=== PATIENT | female | born 1935 | race Caucasian/White ===

== ENCOUNTER 2019-12-29 09:37 | Outpatient (CLI) | payer MEDICARE, BC, SELFPAY ==
--- NOTE | 2019-12-29 09:43 | USCV_ITS ---
Isaac Angie Age: 84 Gender: F : 1935 Exam Date: 12/29/2019 10:08 Ordering Phys: Mario Inman MD Technologist: Scottie Cohen Exam Location: [facility] [place] Indication: MODERATE BP: 124 / 72 HR: 69 Rhythm: Sinus Technical Quality: Adequate MEASUREMENTS (Male / Female) Normal Values 2D ECHO LV Diastolic Diameter PLAX 3.2 cm 4.2 - 5.9 / 3.9 - 5.3 cm LV Systolic Diameter PLAX 2.0 cm IVS Diastolic Thickness 1.4 cm 0.6 - 1.0 / 0.6 - 0.9 cm IVS Systolic Thickness 1.7 cm LVPW Diastolic Thickness 0.9 cm 0.6 - 1.0 / 0.6 - 0.9 cm LVPW Systolic Thickness 1.3 cm LVOT Diameter 2.0 cm LV Ejection Fraction 2D Teich 66.3 % LV Ejection Fraction MOD 2C 72.4 % LV Ejection Fraction 2C AL 72.8 % LA Diameter 3.3 cm LA Width 3.8 cm LA Height 3.9 cm RA Width 3.3 cm RA Height 4.1 cm Aorta at Sinotubular Diameter 3.0 cm M-MODE LV Diastolic Diameter MM 4.0 cm 4.2 - 5.9 / 3.9 - 5.3 cm LV Systolic Diameter MM 2.1 cm LV Ejection Fraction MM Teich 79.9 % IVS Diastolic Thickness MM 0.8 cm 0.6 - 1.0 / 0.6 - 0.9 cm IVS Systolic Thickness MM 1.4 cm LVPW Diastolic Thickness MM 0.9 cm 0.6 - 1.0 / 0.6 - 0.9 cm LVPW Systolic Thickness MM 1.6 cm RV Diastolic Diameter MM 1.4 cm Aortic Annulus Diameter 2.6 cm LA Ao Ratio MM 1.2 MV E Point Septal Separation 0.6 cm DOPPLER AV Peak Velocity 377.0 cm/s LVOT Peak Velocity 134.0 cm/s AV Area Cont Eq vti 1.4 cm squared AV Area Cont Eq pk 1.1 cm squared MV Area PHT 2.7 cm squared Mitral E to A Ratio 0.7 MV E' Velocity 4.0 cm/s Mitral E to MV E' Ratio 26.2 Mitral E to LV E' Lateral Ratio 29.2 Mitral E to LV E' Septal Ratio 23.8 TR Peak Velocity 292.0 cm/s TR Peak Gradient 34.1 mmHg TV Peak E Velocity 77.0 cm/s Right Atrial Pressure 3.0 mmHg Pulmonary Artery Systolic Pressu 37.1 mmHg FINDINGS Left Ventricle Normal left ventricular cavity size. Moderate left ventricular hypertrophy. No regional wall motion abnormalities. Left ventricular ejection fraction is estimated at 66%. Grade I/IV diastolic dysfunction (abnormal relaxation filling pattern), normal to mildly elevated filling pressures. Right Ventricle The right ventricle is normal in size and function. Right Atrium The right atrium is normal in size. Left Atrium Moderately increased left atrial size. Mitral Valve Moderately thickened mitral valve. Severe mitral annular calcification. No mitral valve stenosis. Trace mitral valve regurgitation. Aortic Valve Severe aortic valve calcification. Moderate aortic valve stenosis, mean gradient 24.1 mmHg, JULISA 1.4 cm squared. Trace aortic valve regurgitation. Tricuspid Valve Mild tricuspid valve regurgitation. Pulmonic Valve Trace pulmonary valve regurgitation. Pericardium Normal pericardium without effusion. Aorta Normal ascending aorta dimension. CONCLUSIONS 1-Normal left ventricular cavity size. Moderate left ventricular hypertrophy. No regional wall motion abnormalities. Left ventricular ejection fraction is estimated at 66%. Grade I/IV diastolic dysfunction (abnormal relaxation filling pattern), normal to mildly elevated filling pressures. 2-Moderately thickened mitral valve. Severe mitral annular calcification. No mitral valve stenosis. Trace mitral valve regurgitation. 3-Severe aortic valve calcification. Moderate aortic valve stenosis, mean gradient 24.1 mmHg, JULISA 1.4 cm squared. Trace aortic valve regurgitation. 4-Moderately increased left atrial size. 5-There is no pericardial effusion. 6-Right atrial pressure is around 5 mm of mercury. 7-No significant change since the prior echocardiogram study of 10/07/2018. Logan Bower MD (Electronically Signed) Final Date: 01 January 2020 20:43 S
== END 2019-12-29 09:38 | disposition home or self-care (01) ==
LOC: RAD 09:42
PROVIDERS: PCP Family Medicine; Visit Provider Family Medicine
DX: I35.0 Nonrheumatic aortic (valve) stenosis (principal); I05.9 Rheumatic mitral valve disease, unspecified
CPT/HCPCS: 93306

== ENCOUNTER → 2020-02-22 13:28 | Outpatient (BNVA) | payer MEDICARE, BC, SELFPAY | PROVIDERS: PCP Family Medicine; Visit Provider Nurse Practitioner Family | DX: R06.02 Shortness of breath (principal); R60.0 Localized edema; I08.3 Combined rheumatic disorders of mitral, aortic and tricuspid valves | CPT/HCPCS: 80048; 83880 ==

== ENCOUNTER 2021-04-15 17:01 | Outpatient (CLI) | payer MEDICARE, BC, SELFPAY ==
--- NOTE | 2021-04-15 17:30 | MR_ITS ---
WS: [id number] MRI LEFT KNEE HISTORY: ACUTE MENISCAL TEAR OF LEFT KNEE COMPARISON: 03/19/2021 Anterior cruciate ligament: Intact. Posterior cruciate ligament: Mild thickening but no tear. Medial collateral ligament: Intact. There is fluid on both sides of the MCL. Mild displacement of the MCL from the tibia. Posterior lateral corner structures: Intact. Medial menisci: Abnormal shape and signal in the posterior horn. There is a horizontal tear in the po sterior horn which extends to the inferior articular surface. There is an additional horizontal tear extending to the superior articular surface in the peripheral third of the meniscus. There is signifi cant irregularity along the margins of the anterior horn. Focal defect consistent with a tear in the anterior horn extends to the inferior articular surface. Lateral meniscus: Increased signal in the posterior and anterior horns. Seen only on one view is incr eased signal extending through the body of the meniscus. Probably representing a vertical tear but c annot confirm as it is seen only on one image. Extensor mechanism: Distal quadriceps tendon and patellar tendons are intact. Fluid and soft tissue: Large suprapatellar joint effusion. There is a large amount of soft tissue jasmin ma surrounding the knee. Moderate-sized Ramírez's cyst. There is increase fluid around the Ramírez's cyst suggesting this may have recently ruptured. Osseous and articular structures: Patellofemoral compartment: Normal. Medial compartment: Mild narrowing of the medial compartment. Moderate chondromalacia diffusely throu ghout the surfaces of the knee joint. Small amount of marrow edema and small osteophytes at the tibia l plateau. Lateral compartment: Mild narrowing of the lateral compartment. Mild thinning and fissuring of the ca rtilage. No marrow edema. There is a significant amount of edema within the infrapatellar fat pad. MR/MR knee LT wo con* [id number] IMPRESSION: 1. Large amount of edema surrounding the knee and a large suprapatellar effusi on. 2. Moderate-sized Ramírez's cyst and possible recent rupture. 3. Meniscal tears involving the anterior and posterior horns of the medial men iscus. 4. Large amount of edema in the infrapatellar fat pad. 5. Mild narrowing of the medial and lateral compartments with mild diffuse cho ndromalacia. 6. No fracture. 7. Mild MCL sprain.
== END 2021-04-15 17:02 | disposition home or self-care (01) ==
PROVIDERS: PCP Family Medicine; Visit Provider Family Medicine
DX: S83.242A Other tear of medial meniscus, current injury, left knee, initial encounter (principal); S83.412A Sprain of medial collateral ligament of left knee, initial encounter; X58.XXXA Exposure to other specified factors, initial encounter; M25.462 Effusion, left knee; M94.262 Chondromalacia, left knee; M71.22 Synovial cyst of popliteal space [Baker], left knee
CPT/HCPCS: 73721

== ENCOUNTER 2021-05-05 13:47 | Outpatient (CLI) | payer MEDICARE, BC, SELFPAY ==
--- NOTE | 2021-05-05 14:15 | USCV_ITS ---
Angie Gray Age: 85 Gender: F : 1935 Exam Date: 05/05/2021 14:16 Ordering Phys: Mario Inman MD Technologist: Mariaelena Bernabe [place]am Location: [facility] [place]ication: AORTIC STENOSIS BP: 116 / 78 HR: 77 Rhythm: Sinus Technical Quality: Adequate MEASUREMENTS (Male / Female) Normal Values 2D ECHO LV Diastolic Diameter PLAX 3.9 cm 4.2 - 5.9 / 3.9 - 5.3 cm LV Systolic Diameter PLAX 1.9 cm IVS Diastolic Thickness 1.3 cm 0.6 - 1.0 / 0.6 - 0.9 cm IVS Systolic Thickness 1.9 cm LVPW Diastolic Thickness 1.4 cm 0.6 - 1.0 / 0.6 - 0.9 cm LVPW Systolic Thickness 2.2 cm LVOT Diameter 2.0 cm LV Ejection Fraction 2D Teich 84.0 % LV Ejection Fraction MOD 2C 84.1 % LV Ejection Fraction 2C AL 84.5 % LA Diameter 2.5 cm LA Width 3.2 cm LA Height 4.0 cm RA Width 3.6 cm RA Height 3.8 cm Aorta at Sinotubular Diameter 3.3 cm DOPPLER AV Peak Velocity 359.2 cm/s LVOT Peak Velocity 135.7 cm/s AV Area Cont Eq vti 1.3 cm squared AV Area Cont Eq pk 1.2 cm squared MV Peak Velocity 241.0 cm/s MV Area PHT 2.1 cm squared Mitral E to A Ratio 0.5 MV E' Velocity 56.0 cm/s Mitral E to MV E' Ratio 17.9 Mitral E to LV E' Lateral Ratio 40.3 Mitral E to LV E' Septal Ratio 11.5 TR Peak Velocity 267.3 cm/s TR Peak Gradient 28.6 mmHg Right Atrial Pressure 3.0 mmHg Pulmonary Artery Systolic Pressu 31.6 mmHg PV Peak Velocity 89.0 cm/s RV Acceleration Time 0.1 s RV Ejection Time 0.3 s RV AcT/ET 0.4 FINDINGS Left Ventricle Normal left ventricular size and systolic function, EF 86 %. Moderate left ventricular hypertrophy. No regional wall motion abnormalities. Normal diastolic function. Grade I/IV diastolic dysfunction (abnormal relaxation filling pattern), normal to mildly elevated filling pressures. Right Ventricle The right ventricle is normal in size and function. Right Atrium The right atrium is normal in size. Left Atrium The left atrium is normal in size. Mitral Valve Thickened mitral valve. Moderate mitral annular calcification. Mild mitral valve regurgitation. Aortic Valve Moderate aortic valve stenosis with a valve area of 1.3 cm squared. Peak velocity of 3.6 m/s with a peak gradient. Mild aortic valve regurgitation. Tricuspid Valve Mild tricuspid valve regurgitation. Pulmonic Valve Pulmonic valve not well visualized. Pericardium Normal pericardium without effusion. Aorta Normal ascending aorta dimension. CONCLUSIONS Normal left ventricular size and systolic function, EF 86 %. Moderate left ventricular hypertrophy. No regional wall motion abnormalities. Normal diastolic function. Grade I/IV diastolic dysfunction (abnormal relaxation filling pattern), normal to mildly elevated filling pressures. Thickened mitral valve. Moderate mitral annular calcification. Mild mitral valve regurgitation. Moderate aortic valve stenosis with a valve area of 1.3 cm squared. Peak velocity of 3.6 m/s with a peak gradient of 60 mmHg with a mean gradient of 29 mmHg mild aortic valve regurgitation. There is no pericardial effusion. There are no intracardiac masses. Compared to the study from 12/29/2019, there may not be a significant change Dr David Georges MD FAC (Electronically Signed) Final Date: 05 May 2021 21:42 S
== END 2021-05-05 13:48 | disposition home or self-care (01) ==
LOC: US 13:49
PROVIDERS: PCP Family Medicine; Visit Provider Family Medicine
DX: I08.0 Rheumatic disorders of both mitral and aortic valves
CPT/HCPCS: 93306

== ENCOUNTER → 2021-11-12 13:26 | Outpatient (BNVA) | payer MEDICARE, BC, SELFPAY | PROVIDERS: PCP Family Medicine; Visit Provider Internal Medicine Cardiovascular Disease | DX: I35.0 Nonrheumatic aortic (valve) stenosis (principal); I10 Essential (primary) hypertension; E78.49 Other hyperlipidemia; G47.33 Obstructive sleep apnea (adult) (pediatric) | CPT/HCPCS: 99214 ==

== ENCOUNTER 2022-05-07 09:31 | Outpatient (CLI) | payer MEDICARE, BC, SELFPAY ==
--- NOTE | 2022-05-07 10:00 | USCV_ITS ---
Angie Gray Age: 86 Gender: F : 1935 Exam Date: 05/07/2022 09:57 Ordering Phys: Naila Clark MD ([email or web address]) Technologist: SRAVANI Exam Location: [facility] [place] Indication: HISTORY OF AORTIC STENOSIS, SHORTNESS OF BREATH BP: 150 / 80 HR: 59 Rhythm: Sinus Technical Quality: Adequate MEASUREMENTS (Male / Female) Normal Values 2D ECHO LVOT Diameter 2.0 cm LV Ejection Fraction MOD 2C 74.6 % LV Ejection Fraction 2C AL 81.1 % LA Diameter 2.4 cm LA Width 3.6 cm LA Height 4.3 cm RA Width 3.1 cm RA Height 3.9 cm Aorta at Sinotubular Diameter 1.6 cm IVC Diameter 1.3 cm M-MODE Aortic Annulus Diameter 2.5 cm LA Ao Ratio MM 1.2 MV E Point Septal Separation 0.6 cm DOPPLER AV Peak Velocity 373.5 cm/s LVOT Peak Velocity 145.0 cm/s AV Area Cont Eq vti 1.4 cm squared AV Area Cont Eq pk 1.2 cm squared MV Peak Velocity 168.0 cm/s MV Area PHT 1.6 cm squared Mitral E to A Ratio 0.7 MV E' Velocity 57.0 cm/s Mitral E to MV E' Ratio 18.4 Mitral E to LV E' Lateral Ratio 19.3 Mitral E to LV E' Septal Ratio 17.8 TR Peak Velocity 256.2 cm/s TR Peak Gradient 26.3 mmHg TR Mean Velocity 211.0 cm/s TR Mean Gradient 18.7 mmHg TR Velocity Time Integral 72.1 cm TV Peak E Velocity 40.0 cm/s Right Atrial Pressure 3.0 mmHg Pulmonary Artery Systolic Pressu 29.3 mmHg PV Peak Velocity 132.0 cm/s RV Acceleration Time 0.1 s RV Ejection Time 0.4 s RV AcT/ET 0.4 FINDINGS Left Ventricle Normal left ventricular size and systolic function, EF 73 %. Moderate left ventricular hypertrophy. No regional wall motion abnormalities. Grade I/IV diastolic dysfunction (abnormal relaxation filling pattern), normal to mildly elevated filling pressures. Right Ventricle The right ventricle is normal in size and function. Right Atrium The right atrium is normal in size. Left Atrium The left atrium is normal in size. Mitral Valve Moderate mitral annular calcification. Mild mitral valve regurgitation. Aortic Valve Moderate aortic valve regurgitation. Moderate aortic valve stenosis, mean gradient 30.3 mmHg, JULISA 1.4 cm squared. Tricuspid Valve Mild tricuspid valve regurgitation. Pulmonic Valve No gross abnormalities noted Pericardium Normal pericardium without effusion. Aorta Normal ascending aorta dimension. IVC Normal inferior vena cava. CONCLUSIONS Normal left ventricular size and systolic function, EF 73 %. Moderate left ventricular hypertrophy. No regional wall motion abnormalities. Grade I/IV diastolic dysfunction (abnormal relaxation filling pattern), normal to mildly elevated filling pressures. Moderate aortic valve stenosis, mean gradient 30.3 mmHg, JULISA 1.4 cm squared. Moderate aortic valve regurgitation. Moderate mitral annular calcification. Mild mitral valve regurgitation. Mild tricuspid valve regurgitation. Estimated pulmonary artery peak systolic pressure 29 mmHg There is no pericardial effusion. There are no intracardiac masses. Compared to the study from 05/05/2021, there may not be significant change Dr David Georges MD FAC (Electronically Signed) Final Date: 08 May 2022 09:47 S
== END 2022-05-07 09:32 | disposition home or self-care (01) ==
PROVIDERS: PCP Family Medicine; Visit Provider Internal Medicine Cardiovascular Disease
DX: I08.3 Combined rheumatic disorders of mitral, aortic and tricuspid valves (principal)
CPT/HCPCS: 93306

== ENCOUNTER → 2022-06-24 13:44 | Outpatient (BNVA) | payer MEDICARE, BC, SELFPAY | PROVIDERS: PCP Family Medicine; Visit Provider Internal Medicine Cardiovascular Disease | DX: I35.0 Nonrheumatic aortic (valve) stenosis (principal); I10 Essential (primary) hypertension; R06.02 Shortness of breath | CPT/HCPCS: 99214; Q3014 ==

== ENCOUNTER 2023-09-23 11:14 | Emergency (ER) | payer MEDICARE, BC, SELFPAY ==
[2023-09-23 11:31] VITALS: BP 203/93; PULSE 76; RESP 17; TEMP 36.4; O2SAT 96; BMI 26.3
--- NOTE | 2023-09-23 11:46 | XR_ITS ---
WS: [id number] Examination: XR forearm RT 2V [id number] Reason for Exam: injury Date: September 23, 2023 Comparison: None. Findings: The bone density is mildly diminished. There is no destruction. There is no fracture or dislocation involving the ulna. There is a mildly displaced fracture identifi ed involving the distal radius. This is better visualized on the wrist films. Impression: There is a fracture involving the distal right radial shaft.
--- NOTE | 2023-09-23 11:46 | XR_ITS ---
WS: [id number] Examination: XR wrist RT min 3V* [id number] Reason for Exam: injury Date: September 23, 2023 Comparison: None. Findings: There is soft tissue swelling. The bone density is diminished. 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 There is chondrocalcinosis identified at the TFCC and the radiocarpal joint with mild scapholunate wi dening suspected. There is a cortical offset with nondisplaced fracture suspected involving the distal radius. 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
[2023-09-23 12:05] VITALS: BP 152/123; PULSE 81; RESP 16
--- NOTE | 2023-09-23 12:43 | ED_ITS ---
HPI - Extremity Problem General: Chief complaint: Extremity Injury, Upper Stated complaint: fell hurt arm Time Seen by Provider: 09/23/23 12:11 Source: patient Mode of arrival: ambulatory Limitations: no limitations History of Present Illness: 7-year-old female states she had fell ou t of bed 2 days ago she states she landed on her right arm. She states she had some slight pain and noticed some bruising today she denies any severe pain she denies any other injuries she denies hitting her head denies any neck pain she denies any shoulder or elbow pain. Associated symptoms: Deny chest pain, fever(s) or rash Review of Systems Const: Denies: fever(s), chills, body aches or change in appetite ENMT: Denies: throat pain or dental pain Card: Denies: chest pain Resp: Denies: dyspnea GI: Denies: abdominal pain, nausea, vomiting or diarrhea Musc: Reports: extremity pain; Denies: neck pain or back pain Skin/Breast: Denies: rash Neuro: Denies: headache(s) PFSH ED PFSH: Medical History Hypertension History of diverticulosis Hyperlipidemia Asthma History of dementia History of obstructive sleep apnea Aortic stenosis Surgical History History of removal of both ovaries Hx of hysterectomy Social History Smoking and tobacco/nicotine status: never used tobacco/nicotine Physical Exam Const: COMMON NORMALS: no acute distress, patient oriented x3 and healthy appearing HENMT: COMMON NORMALS: normocephalic and atraumatic HEAD & SCALP: normocephalic and atraumatic Neck/C-Spine: COMMON NORMALS: full ROM Chest: COMMONS NORMALS: normal inspection of the chest Resp: COMMON NORMALS: normal respiratory effort Cardio: COMMON NORMALS: regular rate, regular rhythm and No murmurs present (Cardio) RATE: regular rate RHYTHM: regular rhythm Extremity: COMMON NORMALS: full ROM NARRATIVE EXTREMITY EXAM: Bruising noted over left forearm and wrist with slight tenderness no obvious deformity Neuro: COMMON NORMALS: patient oriented x3, moves all extremities and no focal motor deficits Psych: COMMON NORMALS: mental status grossly normal, Normal thought process present and cooperative THOUGHT PROCESS: Normal thought process present Skin: COMMON NORMALS: no rashes or lesions noted and no wounds GENERAL SKIN EXAM: no rashes or lesions noted Course Vital Signs: Vital signs: Vital Signs Temperature 97.6 F 09/23/23 11:31 Pulse Rate 81 09/23/23 12:05 Respiratory Rate 16 09/23/23 12:05 Blood Pressure 152/123 09/23/23 12:05 Pulse Oximetry 96 09/23/23 11:31 Oxygen Delivery Me thod Room Air 09/23/23 11:31 MDM - Extremity (Nontraumatic) Medical Decision Making Patient presents with a distal right radius fracture did place in sugar-tong splint she will follow-up with orthopedics she is stable for discharge no other injuries noted Medical Records I reviewed the patient's medical records. All radiology interpretation(s) finalized by discharge Discharge Plan Discharge Patient Disposition: Home Clinical Impression: Closed fracture of right distal radius Condition: Stable Prescriptions: No Action amlodipine 5 mg tablet 5 mg PO BID hydralazine 50 mg tablet 50 mg PO BID lisinopril 20 mg tablet 20 mg PO BID Tylenol Ex Str Rapid Release 500 mg Tablet 500 mg PO Q6H PRN (Reason: Pain) Discharge Orders: Discharge ED (Routine); Ordered 09/23/23 Ordered By: Robert Deleon Referrals: Rico Smyth DO [Physician] - 1-3 days Mario Inman MD [Primary Care Provider] - Discharge Diet: Advance as tolerated Discharge Activity: Resume usual activity Patient Instructions: Wrist Fracture in Adults (ED) Coding Level of Care Code ED Exceptional Student Education Teacher for Lisa Maharaj
--- NOTE | 2023-09-23 12:59 | PC.PHAR ---
pts states pt has been out for longer than 6 weeks of her hydralazine 50mg bid lisinopril 20mg bid and amlodipine 5mg bid states pt has only been taking tylenol per pt and pts
--- NOTE | 2023-09-23 12:59 | DCPLANNER ---
A message was sent to ortho on 09/23/23 at [id number]. [facility] to contact patient
[2023-09-23 13:35] VITALS: BP 172/105; PULSE 70; O2SAT 93
== END 2023-09-23 13:38 | disposition home or self-care (01) ==
PROVIDERS: Emergency Provider Emergency Medicine; PCP Family Medicine
DX: S52.501A Unspecified fracture of the lower end of right radius, initial encounter for closed fracture (principal); S50.12XA Contusion of left forearm, initial encounter; S60.212A Contusion of left wrist, initial encounter; I10 Essential (primary) hypertension; E78.5 Hyperlipidemia, unspecified; F03.90 Unspecified dementia, unspecified severity, without behavioral disturbance, psychotic disturbance, mood disturbance, and anxiety; W06.XXXA Fall from bed, initial encounter
CPT/HCPCS: 29125; 73090; 73110; 99283

== ENCOUNTER → 2023-09-28 14:59 | Outpatient (BNVA) | payer MEDICARE, BC, SELFPAY | PROVIDERS: PCP Family Medicine; Referring Provider Emergency Medicine; Visit Provider Orthopaedic Surgery | DX: S52.501A Unspecified fracture of the lower end of right radius, initial encounter for closed fracture (principal); X58.XXXA Exposure to other specified factors, initial encounter; Z46.89 Encounter for fitting and adjustment of other specified devices; S52.591D Other fractures of lower end of right radius, subsequent encounter for closed fracture with routine healing; X58.XXXD Exposure to other specified factors, subsequent encounter | CPT/HCPCS: 73110; 97760; 99203; L3982 ==

== ENCOUNTER 2023-09-28 16:10 | Outpatient (CLI) | payer MEDICARE, BC, SELFPAY | END 2023-09-28 16:11 | disposition home or self-care (01) | LOC: SPT 16:11 | PROVIDERS: PCP Family Medicine; Visit Provider Orthopaedic Surgery | DX: Z46.89 Encounter for fitting and adjustment of other specified devices (principal); S52.591D Other fractures of lower end of right radius, subsequent encounter for closed fracture with routine healing; X58.XXXD Exposure to other specified factors, subsequent encounter | CPT/HCPCS: 97760; L3982 ==